=== PATIENT | male | born 1940 | race Caucasian/White ===

== ENCOUNTER 2024-03-19 19:41 | Emergency (ER) | payer MEDICARE, BC ==
[~2024-03-19] VITALS: Ht 175.3 cm; Wt 90.7 kg
[2024-03-19] MEDS ORDERED: ASPIRIN 81 MG TAB.CHEW PO ONE (20:00)
[2024-03-19 20:12] LABS: BASOPHILS % (AUTO) 0.5 % (0.0-2.0); EOSINOPHILS # (AUTO) 0.1 K/uL (0.0-0.7); EOSINOPHILS % (AUTO) 1.3 % (0.0-7.0); HEMATOCRIT 45.3 % (36.7-47.1); LYMPHOCYTES # (AUTO) 1.3 K/uL (0.8-4.8); LYMPHOCYTES % (AUTO) 14.1 % (20.5-51.5); MEAN CORPUSCULAR HGB CONC 33 g/dL (32.5-36.3); MEAN CORPUSCULAR VOLUME 90.6 fL (73.0-96.2); MONOCYTES # (AUTO) 0.9 K/uL (0.1-1.30); MONOCYTES % (AUTO) 10.1 % (0.0-11.0); NEUTROPHILS # (AUTO) 6.6 K/uL (1.8-8.9); PLATELET COUNT (AUTO) 180 K/uL (152-348); RED BLOOD CELL COUNT(AUTO) 5.01 MIL/uL (4.06-5.63); RED CELL DISTRIBUTION WIDTH 14.5 % (12.1-16.2)
[2024-03-19 20:18] LABS: DIFFERENTIAL COMMENT 1
[2024-03-19 20:24] LABS: MAGNESIUM 2.1 mg/dL (1.8-2.4)
[2024-03-19] MEDS: IV NORMAL SALINE 500 ML BAG IV ONE (20:29)
[2024-03-19 20:34] LABS: ALANINE AMINOTRANSFERASE 29 U/L (16-63); ALBUMIN 3.2 g/dL (3.4-5.0); ALKALINE PHOSPHATASE 83 U/L (50-136); ASPARTATE AMINOTRANSFERASE 20 U/L (15-37); BILIRUBIN,DIRECT 0.2 mg/dL (0.0-0.2); BILIRUBIN,TOTAL 0.5 mg/dL (0.2-1.0); CALCIUM 9.1 mg/dL (8.5-10.1); CARBON DIOXIDE 29 mmol/L (21-32); CHLORIDE 108 mmol/L (98-107); GLUCOSE 120 mg/dL (74-106); SODIUM SERUM 144 mmol/L (136-145); TOTAL PROTEIN, SERUM 5.9 g/dL (6.4-8.2); UREA NITROGEN, BLOOD 19 mg/dL (7-18)
[2024-03-19] MEDS ORDERED: DILTIAZEM HCL 25 MG IV ONE (20:46)
[2024-03-19 20:54] LABS: THYROID STIMULATING HORMONE 1.386 mIU/mL (0.358-3.740)
[2024-03-19] MEDS: DILTIAZEM HCL 25 MG IV IV ONE (21:00)
[2024-03-19 23:07] VITALS: BP 114/72; TEMP 98; O2SAT 98
== END 2024-03-19 23:08 | disposition home or self-care (01) ==
LOC: ER 19:42
DX: I48.91 Unspecified atrial fibrillation (principal); R07.89 Other chest pain; Z79.02 Long term (current) use of antithrombotics/antiplatelets
CPT/HCPCS: 99291; 96374; 80076; 80048; 83735; 84443; 85025; 85610; 84484 ×2; 36415; 71045; 93005; J3490; J7040; A4606; A4663